=== PATIENT | male | born 1990 | race Caucasian/White ===

== ENCOUNTER 2017-05-13 21:32 | Emergency (ER) | payer OTHER ==
[~2017-05-13] VITALS: Ht 177.8 cm; Wt 63.5 kg
[~2017-05-13 21:32] MED LIST: ALBU90OI INH; AMOX500 PO; CARI350 PO; CYCL10 PO; Cyclobenzaprine5 MG PO; HYDACE5 PO; IBUP600 PO; IBUP800 PO; MIRT15 PO; NAPR500 PO; Norco 5-325 Ta1 EACH PO; OMEP20ER PO; PAXIL; TETR250; TYLENOL PRN; [UNRECOGNIZED DRUG - REMARK]
[2017-05-14] MEDS ORDERED: LIDO700A20 TOP (01:07)
== END 2017-05-14 01:15 | disposition home or self-care (01) ==
LOC: ER 21:32
DX: M54.5 Low back pain (principal); J45.909 Unspecified asthma, uncomplicated; F17.200 Nicotine dependence, unspecified, uncomplicated; Z91.011 Allergy to milk products; Z79.899 Other long term (current) drug therapy; V43.62XA Car passenger injured in collision with other type car in traffic accident, initial encounter
CPT/HCPCS: 72100; 99283

== ENCOUNTER 2019-01-04 13:24 | Emergency (ER) | payer OTHER ==
[~2019-01-04] VITALS: Ht 177.8 cm; Wt 59.0 kg
[~2019-01-04 13:24] MED LIST changes: +LIDO700A20 TOP
[2019-01-04] MEDS ORDERED: ALPR1 PO (13:50)
[2019-01-04] MEDS ORDERED: AMPDEX10CR PO (13:50)
[2019-01-04] MEDS ORDERED: VENL25 PO ×2 (13:51→14:02)
[2019-01-04] MEDS ORDERED: QUET100 PO (13:51)
[2019-01-04] MEDS ORDERED: Vistaril50 MG PO (14:02)
[2019-01-04] MEDS ORDERED: Seroquel50 MG PO (14:02)
== END 2019-01-04 14:03 | disposition home or self-care (01) ==
LOC: ER 13:24
DX: Z76.0 Encounter for issue of repeat prescription (principal); F17.210 Nicotine dependence, cigarettes, uncomplicated; Z88.8 Allergy status to other drugs, medicaments and biological substances; Z91.011 Allergy to milk products; Z79.899 Other long term (current) drug therapy
CPT/HCPCS: 99281